=== PATIENT | female | born 1985 | race Caucasian/White ===

== ENCOUNTER 2019-01-30 10:41 | Emergency (ER) | payer OTHER ==
--- NOTE | 2019-01-30 11:32 | ED ---
Lower Extremity - HPI Summary HPI Summary: This pt is a 33 y/o female presenting to [facility] c/o left knee pain s/p fall while skiing and twisting left knee yesterday. Pt reports she was skiing yesterday when she fell and twisted her left knee. She states she heard a pop but was able to get up. Today upon waking up she is unable to bear weight on left leg and has decreased ROM on left leg, unable to fully extend and bend. PMHx: Colitis treated with Remicade. - History of Current Complaint Chief Complaint: EDExtremityLower Stated Complaint: LEFT KNEE INJURY Time Seen by Provider: 01/30/19 11:27 Hx Obtained From: Patient Mechanism Of Injury: Fall From A Standing Position, Twisted Onset of Pain: Immediate Onset/Duration: Still Present Severity Currently: Moderate Pain Intensity: 6 Pain Scale Used: 0-10 Numeric Timing: Constant Location: Is Discrete @ - left knee Character Of Pain: Aching Associated Signs And Symptoms: Positive: Swelling, Knee Pain - left. Negative: Fever, Weakness, Dizziness, Syncope, Abdominal Pain Aggravating Factor(s): Weight Bearing Alleviating Factor(s): Rest Able to Bear Weight: No Related History: Other - patient fell while skiing and twisted left knee - Allergies/Home Medications Allergies/Adverse Reactions: Allergies Allergy/AdvReac Type Severity Reaction Status Date / Time Sulfa (Sulfonamide Allergy Hives Verified 01/30/19 10:51 Antibiotics) ciprofloxacin [From Cipro] AdvReac Hives Verified 01/30/19 10:51 Home Medications: Home Medications Cholecalciferol TAB* [Vitamin D TAB*] 1,000 unit PO DAILY 01/30/19 [History Confirmed 01/30/19] Cyanocobalamin (Vitamin B-12) [Vitamin B-12] 5,000 mcg PO DAILY 01/30/19 [ History Confirmed 01/30/19] Dextroamphetamine/Amphetamine [Adderall 10 mg-] 1 tab PO BID 01/30/19 [History Confirmed 01/30/19] Lactase [Lactaid] 3,000 unit PO DAILY PRN 01/30/19 [History Confirmed 01/30/19] Lisinopril TAB* [Prinivil TAB 5 MG*] 5 mg PO DAILY 01/30/19 [History Confirmed 01/30/19] inFLIXimab* [Remicade*] 100 mg IV SEE INSTRUCTIONS 01/30/19 [History Confirmed 01/30/19] PMH/Surg Hx/FS Hx/Imm Hx Endocrine/Hematology History: Denies: Hx Diabetes Cardiovascular History: Denies: Hx Hypertension GI History: Reports: Other GI Disorders - Colitis - Surgical History Surgery Procedure, Year, and Place: Oral surgery Infectious Disease History: No Infectious Disease History: Denies: Traveled Outside the [place] in Last 30 Days - Family History Known Family History: Negative: Cardiac Disease, Hypertension, Diabetes - Social History Alcohol Use: Occasionally Substance Use Type: Reports: None Smoking Status (MU): Former Smoker Review of Systems Negative: Fever, Chills Cardiovascular: Negative Respiratory: Negative Gastrointestinal: Negative Musculoskeletal: Other - POS: left knee pain Positive: Decreased ROM - left knee, Edema - left knee All Other Systems Reviewed And Are Negative: Yes Physical Exam - Summary Physical Exam Summary: VITAL SIGNS: Reviewed. GENERAL: Patient is a well-developed and nourished female. Patient is not in any acute respiratory distress. HEAD AND FACE: Normocephalic EYES: PERRLA, EOMI x 2. EARS: Hearing grossly intact. MOUTH: Oropharynx within normal limits. NECK: Supple, trachea is midline, no adenopathy, no JVD, no carotid bruit. CHEST: Symmetric, no tenderness at palpation LUNGS: Clear to auscultation bilaterally. No wheezing or crackles. CVS: Regular rate and rhythm, S1 and S2 present, no murmurs or gallops appreciated. ABDOMEN: Soft, non-tender. Bowel sounds are normal. No abdominal abnormal pulsations. EXTREMITIES: Left knee tenderness and swelling. Joint effusion on left knee. A little ecchymosis above the patella, left. Decreased ROM secondary to pain of left knee. Good pulses and good capillary refill. NEURO: Alert and oriented x 3. No acute neurological deficits. Speech is normal and follows commands. SKIN: Dry and warm Triage Information Reviewed: Yes Vital Signs On Initial Exam: Initial Vitals Temp Pulse Resp BP Pulse Ox 98.4 F 78 16 140/86 99 01/30/19 10:46 01/30/19 10:46 01/30/19 10:46 01/30/19 10:46 01/30/19 10:46 Vital Signs Reviewed: Yes Diagnostics - Vital Signs Vital Signs Temp Pulse Resp BP Pulse Ox 01/30/19 10:46 98.4 F 78 16 140/86 99 - Laboratory Lab Statement: Any lab studies that have been ordered have been reviewed, and results considered in the medical decision making process. - Radiology Left knee XR Radiology Interpretation Completed By: Radiologist Summary of Radiographic Findings: IMPRESSION: Joint effusion, no fracture is seen. Dr. Flores has reviewed this report. Re-Evaluation - Re-Evaluation First Eval Re-Evaluation Time: 12:45 Comment: Reviewed XR results with pt. She will be discharged home with follow up from orthopedics. Lower Extremity Course/Dx - Course Assessment/Plan: This patient is a 33-year-old female who presents to the emergency department with a chief complaint of left knee pain. The patient reports that she had an accident where she was skiing yesterday. X-ray of the knee impression: Joint effusion. No fracture seen. In the ED course the patient will be given ibuprofen, Toradol, and Tolar for the pain. The patient was placed in a knee immobilizer and she will be given crutches and follow-up with orthopedics to rule out any tendon injury. Patient was given a prescription for Tolar. I discussed the findings and test results with the patient as well as the plan and she understands and agrees. All her questions were answered and there is no further concerns. - Diagnoses Differential Diagnosis/HQI/PQRI: Positive: Contusion, Dislocation, Fracture ( Closed), Sprain, Strain Provider Diagnoses: Knee pain Discharge - Sign-Out/Discharge Documenting (check all that apply): Patient Departure - Discharge home Patient Received Moderate/Deep Sedation with Procedure: No - Discharge Plan Condition: Stable Disposition: HOME Prescriptions: Hydrocodone/Acetaminophen [Tolar 5-325 Tablet] 1 each PO Q6H PRN #10 tablet MDD 4 PRN Reason: Pain Patient Education Materials: Knee Pain (ED) Referrals: Fortino Ballesteros MD [Primary Care Provider] - Rogerio Castano MD [Medical Doctor] - Additional Instructions: PLEASE FOLLOW UP WITH DR. CASTANO, ORTHOPEDIST. RETURN TO THE ED FOR ANY WORSENING OR NEW SYMPTOMS. - Billing Disposition and Condition Condition: STABLE Disposition: Home - Attestation Statements Document Initiated by Scribe: Yes Documenting Scribe: Cesia Dos Santos Provider For Whom Scribe is Documenting (Include Credential): Kirby Flores MD Scribe Attestation: I, Cesia Dos Santos, scribed for Kirby Flores MD on 01/31/19 at 1011. Scribe Documentation Reviewed: Yes Provider Attestation: The documentation as recorded by the scribe, Cesia Dos Santos accurately reflects the service I personally performed and the decisions made by me, Kirby Flores MD Status of Scribe Document: Viewed
[2019-01-30] MEDS ORDERED: Ibuprofen TAB* 800 MG PO ONE (12:43)
[2019-01-30] MEDS ORDERED: Ketorolac INJ* 60 MG/2 ML VIAL IM ONE (12:45)
[2019-01-30] MEDS ORDERED: HYDROcodone/ACETAMIN 5-325 MG* 1 TAB PO ONE (12:46)
[2019-01-30 13:32] VITALS: BP 144/99
== END 2019-01-30 13:31 | disposition home or self-care (01) ==
LOC: ED 10:41
DX: M25.562 Pain in left knee (principal); M25.462 Effusion, left knee; Z88.1 Allergy status to other antibiotic agents; Z88.2 Allergy status to sulfonamides; Z87.891 Personal history of nicotine dependence
CPT/HCPCS: 96372; 99282; J1885

== ENCOUNTER 2019-12-04 19:10 | Emergency (ER) | payer SELFPAY ==
--- NOTE | 2019-12-04 20:27 | ED ---
Lower Extremity - HPI Summary HPI Summary: The patient is a 34 y/o F presenting to [facility] with a chief complaint of pain and swelling in the left calf onset three days ago. She reports that the pain began suddenly without any known trauma. She denies any SOB or CP. The soreness is rated 6/10 in severity. The pain is aggravated by touch. She is not currently on control. She had ACL surgery in the left leg 8 months ago without complication. She notes that she did do a lot of driving last month for a trip, but she has not traveled much since then. PMHx: anemia, HTN, colitis. Former smoker, occasional EtOH, no substance use. Medications reviewed. Allergies noted. - History of Current Complaint Chief Complaint: EDExtremityLower Stated Complaint: LT CALF SWOLLEN PER PT Time Seen by Provider: 12/04/19 20:14 Hx Obtained From: Patient Mechanism Of Injury: Unknown Onset of Pain: Days - 3 Onset/Duration: Still Present Severity Initially: Mild Severity Currently: Moderate Pain Intensity: 6 Pain Scale Used: 0-10 Numeric Location: Is Discrete @ - left calf Associated Signs And Symptoms: Positive: Swelling Aggravating Factor(s): Other - touch Alleviating Factor(s): Nothing - Allergies/Home Medications Allergies/Adverse Reactions: Allergies Allergy/AdvReac Type Severity Reaction Status Date / Time pistachio nut Allergy Swelling Verified 12/04/19 19:16 Of Face,Lips,& Throat Sulfa (Sulfonamide Allergy Hives Verified 12/04/19 19:16 Antibiotics) ciprofloxacin [From Cipro] AdvReac Hives Verified 12/04/19 19:16 INJECTION SITE PMH/Surg Hx/FS Hx/Imm Hx Endocrine/Hematology History: Reports: Hx Anemia - r/t ulcerative colitis Denies: Hx Diabetes Cardiovascular History: Reports: Hx Hypertension Denies: Hx Pacemaker/ICD, Other Cardiovascular Problems/Disorders Respiratory History: Denies: Other Respiratory Problems/Disorders GI History: Reports: Other GI Disorders - Colitis History: Reports: Hx Kidney Infection - x3, hospitalized x2, Hx Kidney Stones - passes Denies: Hx Renal Disease Sensory History: Denies: Hx Contacts or Glasses, Hx Hearing Aid Opthamlomology History: Denies: Hx Contacts or Glasses Neurological History: Reports: Hx Migraine, Other Neuro Impairments/Disorders - ADD Psychiatric History: Reports: Hx Anxiety - 2004 Denies: Hx Panic Disorder - Surgical History Surgical History: Yes Surgery Procedure, Year, and Place: Oral surgery Hx Anesthesia Reactions: No Infectious Disease History: No Infectious Disease History: Denies: Traveled Outside the [place] in Last 30 Days - Family History Known Family History: Negative: Cardiac Disease, Hypertension, Diabetes - Social History Alcohol Use: Occasionally Alcohol Amount: 3 drinks per week Hx Substance Use: No Substance Use Type: Reports: None Hx Tobacco Use: Yes Smoking Status (MU): Former Smoker Amount Used/How Often: social Review of Systems Negative: Chest Pain Negative: Shortness Of Breath Positive: Myalgia - left calf with swelling All Other Systems Reviewed And Are Negative: Yes Physical Exam - Summary Physical Exam Summary: Constitutional: Well-developed, Well-nourished, Alert. (-) Distressed Skin: Warm, Dry HENT: Normocephalic; Atraumatic Eyes: Conjunctiva normal Neck: Musculoskeletal ROM normal neck. (-) JVD, (-) Stridor, (-) Tracheal deviation Cardio: Rhythm regular, rate normal, Heart sounds normal; Intact distal pulses; Radial pulses are 2+ and symmetric. (-) Murmur Pulmonary/Chest wall: Effort normal. (-) Respiratory distress, (-) Wheezes, (-) Rales Abd: Soft, (-) tenderness, (-) Distension, (-) Guarding, (-) Rebound Musculoskeletal: (-) Edema; Left calf tenderness, Obvious swelling, Redness Lymph: (-) Cervical adenopathy Neuro: Alert, Oriented x3 Psych: Mood and affect Normal Triage Information Reviewed: Yes Vital Signs On Initial Exam: Initial Vitals Temp Pulse Resp BP Pulse Ox 98.3 F 105 16 163/92 99 12/04/19 19:13 12/04/19 19:13 12/04/19 19:13 12/04/19 19:13 12/04/19 19:13 Vital Signs Reviewed: Yes Procedures - Sedation Patient Received Moderate/Deep Sedation with Procedure: No Diagnostics - Vital Signs Vital Signs Temp Pulse Resp BP Pulse Ox 12/04/19 19:13 98.3 F 105 16 163/92 99 - Laboratory Lab Statement: Any lab studies that have been ordered have been reviewed, and results considered in the medical decision making process. Re-Evaluation - Re-Evaluation First Eval Re-Evaluation Time: 21:30 Comment: We discussed plan for discharge if results are negative. Lower Extremity Course/Dx - Course Course Of Treatment: Patient is here 3 days of left calf pain and swelling. Patient has no obvious swelling on exam, no venous cords, no erythema. Patient is tender in her muscle. However, given patient's symptoms an ultrasounds performed. Patient's leg is suffering from a muscle strain. Patient was signed out to Dr. Macedo pending ultrasound results. - Diagnoses Provider Diagnoses: Pain of left calf Discharge ED - Sign-Out/Discharge Documenting (check all that apply): Sign-Out Patient Signing out patient TO: Alonso Anglin - Patient is a sign-out to Dr. Alonso Anglin MD, at 2200 on 12/04/2019, pending DVT LLE US results and disposition. - Discharge Plan Condition: Stable Disposition: HOME Patient Education Materials: Leg Pain (ED) Referrals: Bisi Guardado [Primary Care Provider] - 3 Days Additional Instructions: Follow up with your primary care provider in 1-3 days. Return to the emergency department for new or concerning symptoms. - Billing Disposition and Condition Condition: STABLE Disposition: Home - Attestation Statements Document Initiated by Marli: Yes Documenting Scribe: Tika Webb Provider For Whom Marli is Documenting (Include Credential): Dr. Fahad Johnson MD Scribe Attestation: Tika Toscano scribed for Dr. Fahad Johnson MD on 12/05/19 at 1000. Scribe Documentation Reviewed: Yes Provider Attestation: The documentation as recorded by the Tika silva accurately reflects the service I personally performed and the decisions made by me, Dr. Fahad Johnson MD Status of Scribe Document: Viewed
[2019-12-04 22:34] VITALS: BP 133/93
--- NOTE | 2019-12-05 01:05 | ED ---
Progress - Progress Note Progress Note: Patient is received as a sign-out from Dr. Johnson to Dr. Anglin at 2200 12/04/19 shift change pending US. Venous doppler study showed no DVT. Patient was discharged to home with PCP follow up. Re-Evaluation - Re-Evaluation First Eval Re-Evaluation Time: 21:30 Comment: We discussed plan for discharge if results are negative. Course/Dx - Course Course Of Treatment: Patient is received as a sign-out from Dr. Johnson to Dr. Anglin at 2200 12/04/19 shift change pending US. Venous doppler study showed no DVT. Patient was discharged to home with PCP follow up. - Diagnoses Provider Diagnoses: Pain of left calf Discharge ED - Sign-Out/Discharge Documenting (check all that apply): Patient Departure - dc - Discharge Plan Condition: Stable Disposition: HOME Patient Education Materials: Leg Pain (ED) Referrals: Bisi Guardado [Primary Care Provider] - 3 Days Additional Instructions: Follow up with your primary care provider in 1-3 days. Return to the emergency department for new or concerning symptoms. - Billing Disposition and Condition Condition: STABLE Disposition: Home - Attestation Statements Document Initiated by Marli: Yes Documenting Scribe: Charly Gregg Provider For Whom Marli is Documenting (Include Credential): Alonso Anglin MD Scribe Attestation: Charly Toscano, scribed for Alonso Anglin MD on at 1842. Scribe Documentation Reviewed: Yes Provider Attestation: The documentation as recorded by the Charly silva accurately reflects the service I personally performed and the decisions made by Alonso garcia MD Status of Scribe Document: Viewed
== END 2019-12-04 22:30 | disposition home or self-care (01) ==
LOC: ED 19:10
DX: M79.662 Pain in left lower leg (principal); D64.9 Anemia, unspecified; I10 Essential (primary) hypertension; Z87.891 Personal history of nicotine dependence
CPT/HCPCS: 99282